=== PATIENT | female | born 1950 | race Caucasian/White ===

== ENCOUNTER → 2016-08-21 | Outpatient (CLI) | payer OTHER ==
--- NOTE | 2016-08-21 21:19 | DX ---
DEXA Bone Mineral Densitometry August 21, 2016 Clinical Indications: 66-year-old postmenopausal woman presenting for baseline evaluation. The hayley ent has a history of thyroid dysfunction and currently takes supplemental calcium and vitamin D. Technique: Bone Mineral Densitometry (BMD) by Dual Energy X-Ray Absorptiometry (DEXA) was performed utilizing the [employer]MAN scanner. The lumbar spine was evaluated in the AP projection. The bilat eral hips and left forearm were evaluated in the AP projection. Vertebral fracture assessment was al so performed. Comparison: None. AP Lumbar Spine: The L1, L2, L3, and L4 vertebral bodies were evaluated. BMD: 0.907 gm/cm2. T-score: -2.3 SD. Z-score: -1.2 SD. AP Left Hip: Total BMD: 0.716 gm/cm2. T-score: -2.3 SD. Z-score: -1.5 SD. AP Right Hip: BMD: 0.744 gm/cm2. T-score: -2.1 SD. Z-score: -1.2 SD. AP Left Forearm, 08/11: BMD: 0.779 gm/cm2. T-score: -1.1 SD. Z-score: 0.3 SD. Vertebral Fracture Assessment: No significant fracture deformity. No prevertebral aortic calcificat ion, significant marginal bone spurring, facet arthrosis, or intrinsic vertebral body sclerosis that would affect the accuracy of the lumbar spine BMD measurement. Conclusion: Considering the lowest measured site, the patient has low bone mineral density, with a T -score of -2.3. The ten year risk for any major osteoporotic fracture is 12.3% and for a hip fractur e is 2.4%. Any bone loss in this patient is probably related to aging or estrogen deficiency. To prevent osteoporosis and to promote bone density, consider the following recommendations: 1. Pursue a regular regimen of weightbearing and muscle-strengthening exercises in order to reduce t he risk of falls and fracture (as tolerated by the patient's general medical condition). 2. Ensure that total daily dietary calcium intake is maximized. 3. Check serum hydroxy vitamin D3 (normal >30ng/ml). 4. Ensure daily intake of vitamin D is 800 international units. 5. Consider follow up DEXA scan in two years to assess the rate of bone loss in this patient. 6. Consider excluding common secondary causes of bone loss. Laboratory evaluation might include CBC , TSH, calcium, phosphorous, albumin, creatinine, alkaline phosphatase, PTH, serum, electrophoresis ( SPEP or UPEP), antitissue transglutaminase antibody levels (celiac disease), and hydroxy vitamin D3, as well as a 24-hour urine calcium.
== END ==
LOC: FIMAGING 14:55
PROVIDERS: ATTEND Family Medicine
DX: Z13.820 Encounter for screening for osteoporosis (principal); M85.80 Other specified disorders of bone density and structure, unspecified site; E07.9 Disorder of thyroid, unspecified

== ENCOUNTER → 2017-02-01 | Outpatient (CLI) | payer OTHER | LOC: FIMAGING 15:43 | PROVIDERS: ATTEND Registered Nurse | DX: M79.605 Pain in left leg (principal); M79.604 Pain in right leg ==

== ENCOUNTER → 2017-02-05 | Outpatient (CLI) | payer OTHER | LOC: FIMAGING 09:48 | PROVIDERS: ATTEND Obstetrics & Gynecology | DX: Z12.31 Encounter for screening mammogram for malignant neoplasm of breast (principal); Z80.3 Family history of malignant neoplasm of breast | CPT/HCPCS: G0202 ==

== ENCOUNTER → 2018-02-18 | Outpatient (CLI) | payer OTHER | LOC: FIMAGING 10:46 | PROVIDERS: ATTEND Obstetrics & Gynecology | DX: Z12.31 Encounter for screening mammogram for malignant neoplasm of breast (principal); Z80.3 Family history of malignant neoplasm of breast ==

== ENCOUNTER 2018-03-06 16:52 | Emergency (ER) | payer OTHER ==
[2018-03-06 17:41] VITALS: BP 137/81
--- NOTE | 2018-03-06 17:50 | EDPHY ---
H & P Time Seen by Provider: 03/06/18 17:30 HPI/ROS: CHIEF COMPLAINT: Dizziness HISTORY OF PRESENT ILLNESS: Patient is a 67-year-old female with a history of high cholesterol and thyroid disease who presents emergency department with acute onset dizziness last night. Patient states she had a long day got home late because she went to a festival. When she laid down in bed she suddenly became dizzy. She felt as though the room was spinning. It is worse when she laid back. She needed to fall sleep sitting up. She had nausea with no vomiting. She denies any focal weakness or numbness. No visual change. No speech difficulties. When she woke this morning to symptoms had resolved. Patient states she just felt"fuzzy."No recent trauma or fall. REVIEW OF SYSTEMS: My complete review of systems is negative except as mentioned in the HPI. Past Medical/Surgical History: Includes thyroid disease, hypercholesterolemia, GERD, ANGELIA, Herpes Past surgical history: Includes tonsillectomy, cholecystectomy Social history: The patient does not smoke Smoking Status: Never smoked Physical Exam: Vitals noted GENERAL: Well-appearing, in no acute distress, alert. HEENT: Eyes normal to inspection, normal pharynx, no signs of dehydration. TMs negative NECK: No thyromegaly, no lymphadenopathy, supple. RESPIRATORY: Clear to auscultation bilaterally, no rales, rhonchi or wheezing. CVS: Regular rate and rhythm, no rubs, murmurs, or gallops. ABDOMEN: Soft, nontender, nondistended, no organomegaly. BACK: Normal to inspection, no CVA tenderness. SKIN: Normal color, no rash, warm, dry. No pallor. EXTREMITIES: No pedal edema, no calf tenderness, no Homans sign or cords, no joint swelling. NEURO/PSYCH: Higher functions: Alert and Oriented x3. Normal speech and cognition. Normal mood and affect. Cranial nerves: Normal as tested. Cerebellar: Normal as tested. Good finger to nose, good [id number], normal gait. Peripheral exam: Normal motor exam. Normal sensation. Normal reflexes. Constitutional: Initial Vital Signs Temperature (C) 36.9 C 03/06/18 17:01 Heart Rate 60 03/06/18 17:01 Respiratory Rate 16 03/06/18 17:01 Blood Pressure 156/92 H 03/06/18 17:01 O2 Sat (%) 97 03/06/18 17:01 O2 Delivery Mode Room Air Allergies/Adverse Reactions: cephradine Allergy (Intermediate, Verified 03/06/18 17:04) Rash Sulfa (Sulfonamide Antibiotics) Allergy (Intermediate, Verified 03/06/18 17:04) Rash Home Medications: Medication Instructions Recorded Aspirin EC [Aspirin EC 81 mg (*)] 81 mg PO DAILY 07/24/13 Cholecalciferol Vit D3 [Vitamin D3 1,000 units PO DAILY 07/24/13 (*)] Herbals/Supplements -Info Only 1 each PO AD 07/24/13 Levothyroxine [Synthroid 50 mcg 50 mcg PO DAILY@07/24/13 (*)] Liothyronine Sodium [Cytomel 5 mcg 5 mcg PO DAILY@07/24/13 (*)] [place]-3 Fatty Acids [Fish Oil 1000 1,000 mg PO DAILY 07/24/13 mg (*)] valACYclovir [Valtrex (*)] 500 mg PO Q2D 07/24/13 Fluticasone Nasal [Flonase Nasal 1 sprays NASAL DAILY PRN 10/28/15 [place]] Meclizine HCl [Meclizine HCl 25 mg 25 mg PO TID #11 tab 03/06/18 (RX,OTC)] Medical Decision Making - Diagnostics Imaging Results: Imaging Impressions Head CT 03/06/18 17:52 Impression: No source for dizziness identified. Results called to Dr. Santiago at 7:05 PM General information for patients regarding this examination can be found at [email or web address]. If you have questions or comments about this report, please contact me at (hospital) or [phone] (cell). ED Course/Re-evaluation: In the emergency department I discussed possible etiologies with the patient. I answered all her questions. IV was placed. Laboratory studies, EKG and head CT were ordered. EKG shows normal sinus rhythm, normal rate, normal axis, normal intervals. There are no ST or T-wave abnormalities. EKG is normal as interpreted by me. Patient's CBC and chemistry are unremarkable. Troponin is negative. Head CT: Please refer the dictated report. Normal appearing brain. Dr. Jeffery notes there is a small fatty area in the sinus. He feels this is clinically nonsignificant. Rechecked the patient. She was doing well. No focal neurologic deficits. I discussed the results with the patient. I answered all her questions. She was given warnings prior to leaving. Differential Diagnosis: My differential includes but is not limited to ACS, acute ID, dysrhythmia, anemia, electrolyte abnormality, dehydration, Meniere's disease, labyrinthitis, benign positional vertigo, CVA, dissection - Data Points Laboratory Results: Laboratory Results 03/06/18 18:00 03/06/18 18:00 03/06/18 03/06/18 03/06/18 18:08 18:00 18:00 WBC 7.83 10^3/uL 10^3/uL (3.80-9.50) RBC 4.59 10^6/uL 10^6/uL (4.18-5.33) Hgb 13.6 g/dL g/dL (12.6-16.3) Hct 41.8 % % (38.0-47.0) MCV 91.1 fL fL (81.5-99.8) MCH 29.6 pg pg (27.9-34.1) MCHC 32.5 g/dL g/dL (32.4-36.7) RDW 13.8 % % (11.5-15.2) Plt Count 225 10^3/uL 10^3/uL (150-400) MPV 10.1 fL fL (8.7-11.7) Neut % (Auto) 64.9 % % (39.3-74.2) Lymph % (Auto) 22.9 % % (15.0-45.0) [place] % (Auto) 9.5 % % (4.5-13.0) Eos % (Auto) 1.8 % % (0.6-7.6) Baso % (Auto) 0.8 % % (0.3-1.7) Nucleat RBC Rel Count 0.0 % % (0.0-0.2) Absolute Neuts (auto) 5.09 10^3/uL 10^3/uL (1.70-6.50) Absolute Lymphs (auto) 1.79 10^3/uL 10^3/uL (1.00-3.00) Absolute Monos (auto) 0.74 10^3/uL 10^3/uL (0.30-0.80) Absolute Eos (auto) 0.14 10^3/uL 10^3/uL (0.03-0.40) Absolute Basos (auto) 0.06 10^3/uL 10^3/uL (0.02-0.10) Absolute Nucleated RBC 0.00 10^3/uL 10^3/uL (0-0.01) Immature Gran % 0.1 % % (0.0-1.1) Immature Gran # 0.01 10^3/uL 10^3/uL (0.00-0.10) Sodium 141 mEq/L mEq/L (135-145) Potassium 4.1 mEq/L mEq/L (3.3-5.0) Chloride 106 mEq/L mEq/L (97-110) Carbon Dioxide 26 mEq/l mEq/l (22-31) Anion Gap 9 mEq/L mEq/L (8-16) BUN 17 mg/dL mg/dL (7-23) Creatinine 0.8 mg/dL mg/dL (0.6-1.0) Estimated GFR > 60 Glucose 100 mg/dL mg/dL (70-100) Calcium 9.4 mg/dL mg/dL (8.5-10.4) POC Troponin I 0.00 ng/mL ng/mL (0.00-0.08) Point of Care Test Results: Chemistry 03/06/18 18:08 POC Troponin I 0.00 ng/mL ng/mL (0.00-0.08) Departure - Departure Disposition: Home, Routine, Self-Care Clinical Impression: Dizziness Condition: Good Instructions: Dizziness (ED) Additional Instructions: Return with increasing dizziness, headache, weakness, numbness, visual change or any other concerns. Follow up with Neurology. Contact information has been given. Referrals: Zoe Watson MD [Primary Care Provider] - 3-4 days, if not improved Atul Pitt DO [Doctor of Osteopathy] - 5-7 days, call for appt. Prescriptions: Meclizine HCl [Meclizine HCl 25 mg (RX,OTC)] 25 mg PO TID #11 tab
--- NOTE | 2018-03-06 18:11 | CPEKG ---
Heart Rate: 53 RR Interval: 1132 P-R Interval: 160 QRSD Interval: 96 QT Interval: 428 QTC Interval: 402 P [place]: 45 QRS [place]: 18 T Wave [place]: 8 EKG Severity - NORMAL ECG - EKG Impression: SINUS RHYTHM Electronically Signed By: George Suazo 07-Mar-2018 08:46:10
[2018-03-06 18:18] LABS: PLATELET COUNT 225 10^3/uL (150-400)
== END 2018-03-06 19:32 | disposition home or self-care (01) ==
DX: R42 Dizziness and giddiness (principal); Z79.82 Long term (current) use of aspirin
CPT/HCPCS: 84484-PO